=== PATIENT | female | born 1990 | race Caucasian/White ===

== ENCOUNTER 2020-11-17 22:17 | Emergency (ER) | payer OTHER ==
[2020-11-17 22:34] VITALS: BP 128/72; PULSE 91; TEMP 98.5; BMI 24.2
[2020-11-17 23:42] LABS: URINE APPEARANCE CLEAR; URINE BILIRUBIN NEGATIVE (NEGATIVE); URINE COLOR YELLOW; URINE GLUCOSE (UA) NEGATIVE (NEGATIVE); URINE KETONE NEGATIVE (NEGATIVE); URINE LEUK ESTERASE NEGATIVE (NEGATIVE); URINE NITRITE NEGATIVE (NEGATIVE); URINE PROTEIN NEGATIVE (NEGATIVE); URINE UROBILINOGEN 0.2 mg/dL (0.2-1.0)
[2020-11-17 23:49] LABS: HCG,QUALITATIVE URINE Negative
[2020-11-18 01:40] LABS: HIV INTERPRETATION NEGATIVE (NEGATIVE)
== END 2020-11-18 00:05 | disposition home or self-care (01) ==
LOC: JER 22:17
DX: Z11.3 Encounter for screening for infections with a predominantly sexual mode of transmission (principal)
CPT/HCPCS: 36415; 81003; 84703; 87086; 87389; 87491; 87591; 87661; 99283-25

== ENCOUNTER 2021-03-19 13:38 | Emergency (ER) | payer OTHER ==
[2021-03-19 13:44] VITALS: BP 124/82; PULSE 99; TEMP 97; BMI 23.3
[2021-03-19] MEDS ORDERED: FLUCONAZOLE 150 MG TABLET PO ONE ×2 (14:28→14:38)
[2021-03-19 15:22] LABS: EPI CELLS 12 /uL (0-25.1); HYALINE CASTS 1 /uL (0-3.1); PH,URINE 6.5 (5.0-8.0); URINE APPEARANCE CLOUDY; URINE BACTERIA 482 /uL (0-1359); URINE BILIRUBIN NEGATIVE (NEGATIVE); URINE COLOR YELLOW; URINE GLUCOSE (UA) NEGATIVE (NEGATIVE); URINE KETONE TRACE (NEGATIVE); URINE LEUK ESTERASE 3+ (NEGATIVE); URINE NITRITE NEGATIVE (NEGATIVE); URINE PROTEIN 1+ (NEGATIVE); URINE RBC 52 /uL (0-23.9); URINE WBC 1215 /uL (0-25.8)
== END 2021-03-19 15:45 | disposition home or self-care (01) ==
LOC: JERFT 13:38
DX: N89.8 Other specified noninflammatory disorders of vagina (principal)
CPT/HCPCS: 36415; 81003; 87070; 87077; 87086; 87186; 87205; 87491; 87591; 99283-25

== ENCOUNTER 2021-09-24 06:46 | Emergency (ER) | payer OTHER ==
[2021-09-24 07:22] VITALS: TEMP 98; BMI 21.7
[2021-09-24] MEDS ORDERED: ONDANSETRON 4 MG/2 ML VIAL IVPUSH ONE (08:03)
[2021-09-24] MEDS ORDERED: SODIUM CHLORIDE 0.9% 500 ML INFUS.BAG IV ONE (08:03)
[2021-09-24] MEDS ORDERED: MAG HYDROX/AL HYDROX/SIMETH 30 ML UNIT-DOSE CUP PO ONE (08:03)
[2021-09-24] MEDS ORDERED: ACETAMINOPHEN 1000 MG/100 ML BAG IVPB ONE (08:03)
[2021-09-24] MEDS ORDERED: FAMOTIDINE 20 MG/50 ML IVPB 20 MG/50 ML MG IVPB ONE ×2 (08:03→08:44)
[2021-09-24] MEDS ORDERED: MAG HYDROX/AL HYDROX/SIMETH 30 ML UNIT-DOSE CUP ONE (08:43)
[2021-09-24] MEDS ORDERED: ACETAMINOPHEN INJECTION 100 ML IVPB ONE (08:43)
[2021-09-24] MEDS ORDERED: ONDANSETRON 4 MG/2 ML VIAL ONE (08:44)
[2021-09-24 09:04] LABS: BASO % 0.3 % (0-2.0); HEMATOCRIT 43.7 % (32.4-45.2); HEMOGLOBIN 14.7 GM/dL (10.7-15.3); LYMPH % 22.2 % (8-40); MCH 31.1 pg (25.7-33.7); MCHC 33.5 g/dl (32.0-36.0); MEAN CELL VOLUME 92.8 fl (80-96); MEAN PLT VOLUME 8.2 fl (7.5-11.1); MONO % 12.1 % (3.8-10.2); NEUT % 65.4 % (42.8-82.8); PLATELET COUNT 312 10^3/uL (134-434); RBC 4.71 M/mm3 (3.60-5.2); RDW 12.4 % (11.6-15.6); WHITE BLOOD COUNT 5.4 K/mm3 (4.0-10.0)
[2021-09-24 09:09] LABS: EPI CELLS >36 /uL (0-25.1); HCG,QUALITATIVE URINE Negative; HYALINE CASTS 3 /uL (0-3.1); URINE APPEARANCE CLOUDY; URINE BACTERIA 811 /uL (0-1359); URINE BILIRUBIN NEGATIVE (NEGATIVE); URINE COLOR YELLOW; URINE GLUCOSE (UA) NEGATIVE (NEGATIVE); URINE KETONE 2+ (NEGATIVE); URINE LEUK ESTERASE NEGATIVE (NEGATIVE); URINE NITRITE NEGATIVE (NEGATIVE); URINE PROTEIN 1+ (NEGATIVE); URINE RBC 52 /uL (0-23.9); URINE WBC 17 /uL (0-25.8)
[2021-09-24 09:18] LABS: ALBUMIN 4.2 g/dl (3.4-5.0); BLOOD UREA NITROGEN 13.2 mg/dL (7-18); CALCIUM 9.3 mg/dL (8.5-10.1)
[2021-09-24 09:21] LABS: CREATININE 0.7 mg/dL (0.55-1.3)
[2021-09-24 09:23] LABS: BILIRUBIN,TOTAL 0.4 mg/dL (0.2-1)
[2021-09-24 09:24] LABS: TOT PROT 7.7 g/dl (6.4-8.2)
[2021-09-24] MEDS ORDERED: HALOPERIDOL LACTATE 5 MG/ML IV ONE (10:52)
[2021-09-24] MEDS ORDERED: HALOPERIDOL LACTATE 5 MG/ML ONE (10:59)
[2021-09-24 13:23] VITALS: BP 135/96; PULSE 77
== END 2021-09-24 13:24 | disposition home or self-care (01) ==
LOC: JER 06:46
PROC: 3E033GC Introduction of Other Therapeutic Substance into Peripheral Vein, Percutaneous Approach (ICD-10-PCS; principal; 2021-09-24)
DX: R10.13 Epigastric pain (principal); F12.99 Cannabis use, unspecified with unspecified cannabis-induced disorder; R11.2 Nausea with vomiting, unspecified
CPT/HCPCS: 36415; 80053; 81003; 83690; 84703; 85025; 87086; 93005; 93010; 99284-25; C9803; J0131; U0003; U0005

== ENCOUNTER 2021-09-26 01:33 | Observation (INO) | payer OTHER ==
[2021-09-26 02:15] VITALS: BMI 22.6
[2021-09-26] MEDS ORDERED: ACETAMINOPHEN 1000 MG/100 ML BAG IVPB ONE (03:10)
[2021-09-26] MEDS ORDERED: FAMOTIDINE 20 MG/50 ML IVPB 20 MG/50 ML MG IVPB ONE ×2 (03:10→03:28)
[2021-09-26] MEDS ORDERED: ONDANSETRON 4 MG/2 ML VIAL IVPUSH ONE (03:10)
[2021-09-26] MEDS ORDERED: SODIUM CHLORIDE 1,000 ML IV STA (03:10)
[2021-09-26] MEDS ORDERED: MAG HYDROX/AL HYDROX/SIMETH -MYLANTA- ORAL SUSPENSION PO ONE (03:10)
[2021-09-26] MEDS ORDERED: ACETAMINOPHEN INJECTION 100 ML IVPB ONE (03:28)
[2021-09-26] MEDS ORDERED: ONDANSETRON 4 MG/2 ML VIAL ONE (03:28)
[2021-09-26] MEDS ORDERED: MAG HYDROX/AL HYDROX/SIMETH 30 ML UNIT-DOSE CUP ONE ×2 (03:29→12:51)
[2021-09-26 04:31] LABS: CALCIUM 8.8 mg/dL (8.5-10.1)
[2021-09-26 04:32] LABS: BASO % 0.3 % (0-2.0); BLOOD UREA NITROGEN 15.8 mg/dL (7-18); EOS % 0.2 % (0-4.5); HEMATOCRIT 42.5 % (32.4-45.2); LYMPH % 20.4 % (8-40); MEAN CELL VOLUME 91.5 fl (80-96); MONO % 11.7 % (3.8-10.2); NEUT % 67.4 % (42.8-82.8); RBC 4.64 M/mm3 (3.60-5.2)
[2021-09-26 04:35] LABS: CREATININE 0.7 mg/dL (0.55-1.3)
[2021-09-26 04:36] LABS: BILIRUBIN,TOTAL 0.5 mg/dL (0.2-1); TOT PROT 7.8 g/dl (6.4-8.2)
[2021-09-26 05:08] LABS: HEMOGLOBIN 14.5 GM/dL (10.7-15.3); MCH 31.3 pg (25.7-33.7); MCHC 34.2 g/dl (32.0-36.0); MEAN PLT VOLUME 8.3 fl (7.5-11.1); PLATELET COUNT 288 10^3/uL (134-434); RDW 12.2 % (11.6-15.6); WHITE BLOOD COUNT 6.7 K/mm3 (4.0-10.0)
[2021-09-26] MEDS ORDERED: morphine CARPU-JECT 4 MG/1 ML DISP.SYRIN IVPUSH ONE (06:05)
[2021-09-26] MEDS ORDERED: METOCLOPRAMIDE HCL INJECTION 10 MG/2 ML VIAL IVPUSH ONE (06:06)
[2021-09-26] MEDS ORDERED: morphine SULFATE 4 MG/ML VIAL ONE (06:14)
[2021-09-26] MEDS ORDERED: METOCLOPRAMIDE HCL INJECTION 10 MG/2 ML VIAL ONE (06:14)
[2021-09-26] MEDS ORDERED: SUCRALFATE 1 GM/10 ML UNIT DOSE CUPS PO ONE (06:15)
[2021-09-26] MEDS ORDERED: SUCRALFATE 1 GM TABLET (FP) ONE (06:15)
[2021-09-26] MEDS ORDERED: SUCRALFATE 1 GM TABLET (FP) PO ONE (06:32)
[2021-09-26 08:36] VITALS: BP 119/67; PULSE 86; TEMP 98.6
[2021-09-26] MEDS ORDERED: ACETAMINOPHEN 325 MG TABLET (FP) PO PRN (08:42)
[2021-09-26] MEDS ORDERED: SODIUM CHLORIDE 1,000 ML IV SCH (08:45)
[2021-09-26] MEDS ORDERED: ACETAMINOPHEN 325 MG TABLET (FP) ONE (09:54)
[2021-09-26] MEDS ORDERED: PANTOPRAZOLE 20 MG TABLET PO ONE (09:54)
[2021-09-26] MEDS ORDERED: PANTOPRAZOLE 20 MG TABLET PO SCH (10:00)
[2021-09-26 10:19] LABS: URINE COLOR YELLOW
[2021-09-26 10:20] LABS: PH,URINE 5.5 (5.0-8.0); URINE APPEARANCE CLEAR; URINE BILIRUBIN NEGATIVE (NEGATIVE); URINE GLUCOSE (UA) NEGATIVE (NEGATIVE); URINE KETONE 3+ (NEGATIVE); URINE LEUK ESTERASE NEGATIVE (NEGATIVE); URINE NITRITE NEGATIVE (NEGATIVE); URINE PROTEIN NEGATIVE (NEGATIVE); URINE UROBILINOGEN 0.2 mg/dL (0.2-1.0)
[2021-09-26] MEDS ORDERED: MAG HYDROX/AL HYDROX/SIMETH -MYLANTA- ORAL SUSPENSION PO SCH (12:00)
[2021-10-02 18:57] LABS: BASO % 0.4 % (0-2.0); EOS % 1.8 % (0-4.5); HEMATOCRIT 39.4 % (32.4-45.2); HEMOGLOBIN 13.7 GM/dL (10.7-15.3); LYMPH % 24.9 % (8-40); MCHC 34.7 g/dl (32.0-36.0); MEAN CELL VOLUME 92.3 fl (80-96); MEAN PLT VOLUME 8.3 fl (7.5-11.1); MONO % 6.9 % (3.8-10.2); PLATELET COUNT 413 10^3/uL (134-434); RBC 4.27 M/mm3 (3.60-5.2); RDW 12.2 % (11.6-15.6); WHITE BLOOD COUNT 9.9 K/mm3 (4.0-10.0)
[2021-10-02 18:58] LABS: URINE APPEARANCE CLEAR; URINE BILIRUBIN NEGATIVE (NEGATIVE); URINE COLOR YELLOW; URINE GLUCOSE (UA) NEGATIVE (NEGATIVE); URINE KETONE NEGATIVE (NEGATIVE); URINE LEUK ESTERASE NEGATIVE (NEGATIVE); URINE NITRITE NEGATIVE (NEGATIVE); URINE PROTEIN NEGATIVE (NEGATIVE); URINE UROBILINOGEN 0.2 mg/dL (0.2-1.0)
[2021-10-02 19:47] LABS: BLOOD UREA NITROGEN 9.4 mg/dL (7-18); CALCIUM 9.3 mg/dL (8.5-10.1)
[2021-10-02 19:48] LABS: ALBUMIN 4.4 g/dl (3.4-5.0)
[2021-10-02 19:52] LABS: CREATININE 0.6 mg/dL (0.55-1.3)
[2021-10-02 19:53] LABS: BILIRUBIN,TOTAL 0.3 mg/dL (0.2-1); TOT PROT 7.6 g/dl (6.4-8.2)
== END 2021-09-26 15:05 | disposition left against medical advice (07) ==
LOC: JER 01:33 → JERBED 06:49 → INTOOBSV 06:49 → UNDOADMOB 06:49 → JERBED 08:45
PROVIDERS: ADMIT Internal Medicine; ATTEND Internal Medicine
PROC: 3E033NZ Introduction of Analgesics, Hypnotics, Sedatives into Peripheral Vein, Percutaneous Approach (ICD-10-PCS; principal; 2021-09-26)
PROC: 3E033GC Introduction of Other Therapeutic Substance into Peripheral Vein, Percutaneous Approach (ICD-10-PCS; 2021-09-26)
PROC: 3E0337Z Introduction of Electrolytic and Water Balance Substance into Peripheral Vein, Percutaneous Approach (ICD-10-PCS; 2021-09-26)
DX: U07.1 COVID-19 (principal); R10.13 Epigastric pain; Z29.9 Encounter for prophylactic measures, unspecified; K29.70 Gastritis, unspecified, without bleeding
CPT/HCPCS: 36415; 74177-TC; 80053; 81003; 83690; 84703; 85025; 87086; 96361; 96365; 96375; 99285-25; G0378; J0131; Q9967

== ENCOUNTER 2021-12-25 16:34 | Emergency (ER) | payer OTHER ==
[2021-12-25 17:02] VITALS: BP 124/85; PULSE 98; TEMP 97.8; BMI 24.2
[2021-12-25] MEDS ORDERED: ACETAMINOPHEN 500 MG TABLET (FP) PO ONE (17:27)
[2021-12-25] MEDS ORDERED: ACETAMINOPHEN 500 MG TABLET (FP) ONE (17:27)
== END 2021-12-25 20:21 | disposition home or self-care (01) ==
LOC: JER 16:34 → JERFT 16:34
DX: S00.03XA Contusion of scalp, initial encounter (principal); S83.91XA Sprain of unspecified site of right knee, initial encounter; S93.401A Sprain of unspecified ligament of right ankle, initial encounter; S13.4XXA Sprain of ligaments of cervical spine, initial encounter; V48.4XXA Person boarding or alighting a car injured in noncollision transport accident, initial encounter
CPT/HCPCS: 70450-TC; 72125-TC; 73562-TC-RT-FY; 73590-TC-RT-FY; 73610-TC-RT-FY; 73630-TC-RT-FY; 99285-25